=== PATIENT | male | born 1980 | race Caucasian/White ===

== ENCOUNTER → 2016-06-08 | Day surgery (SDC) | payer OTHER ==
[~2016-06-08] MED LIST: LIDOCAINE 2% JELLY 5 ML TUBE ONE
== END ==
LOC: END 08:45
PROVIDERS: ATTEND Surgery
PROC: 4A0B7BZ Measurement of Gastrointestinal Pressure, Via Natural or Artificial Opening (ICD-10-PCS; principal; 2016-06-08)
DX: K21.9 Gastro-esophageal reflux disease without esophagitis (principal); K44.9 Diaphragmatic hernia without obstruction or gangrene
CPT/HCPCS: 91010